=== PATIENT | female | born 1960 | race Caucasian/White ===

== ENCOUNTER → 2016-10-29 | Outpatient (CLI) | payer MEDICARE, MEDICAID ==
[~2016-10-29] MED LIST: ALDACTONE 25MG25 M1 PO; ANTIVERT 12.512.5 MG PO; CLEOCIN HCL300 MG PO; LEXAPRO 5MG5 MG PO; PEN-VEE K500 MG PO; PHENTERMINE15 MG PO; ROBAXIN 50500 MG/TAB PO; SYNTHROID0.125 MG/T PO; TENORMIN 5050 MG/TAB PO; ULTRAM 50MG TAB50 MG PO; VOLTAREN 75 DR75 MG PO
== END ==
LOC: MC.RAD 14:37
DX: Z12.31 Encounter for screening mammogram for malignant neoplasm of breast (principal); Z80.3 Family history of malignant neoplasm of breast

== ENCOUNTER → 2017-03-05 | Outpatient (CLI) | payer MEDICARE, MEDICAID | LOC: COL.VAS 16:27 | DX: R60.0 Localized edema (principal) ==

== ENCOUNTER 2017-08-02 14:55 | Emergency (ER) | payer MEDICARE, MEDICAID ==
[~2017-08-02] VITALS: Ht 144.8 cm; Wt 98.2 kg
[2017-08-02 15:03] VITALS: TEMP 98
[2017-08-02 15:24] LABS: BASO % 0.3 % (0.0-2.0); EOS # 0.2 (0.0-0.7); EOS % 2.5 % (0-4.0); GRAN # 4.1 (1.4-6.5); GRAN % 61.2 % (42.2-75.2); HEMATOCRIT 34.4 % (37.0-47.0); HEMOGLOBIN 11.2 g/dl (12.5-16.0); LYMPH # 1.7 (1.2-3.4); LYMPH % 25.7 % (20.0-51.0); MEAN CELL VOLUME 98 fl (80.0-100.0); MEAN CORPUSCULAR HEMOGLOBIN 32 pg (27.0-31.0); MEAN CORPUSCULAR HGB CONC 33 g/dl (33.0-37.0); MEAN PLATELET VOLUME 9.1 fl (7.4-10.4); MONO # 0.7 (0.1-0.6); MONO % 9.9 % (1.7-9.3); PLATELET COUNT 287 K/mm3 (130-400); RED BLOOD COUNT 3.51 M/mm3 (4.10-5.30); REDCELL DISTRIBUTION WIDTH-CV 13.7 % (11.5-14.5)
[2017-08-02 15:27] LABS: INR 1.3 (0.8-3.0); PROTHROMBIN TIME 15.1 SECONDS (9.7-12.8)
[2017-08-02 15:35] LABS: ALANINE AMINOTRANSFERASE 389 U/L (9-52); ALBUMIN 3.6 gm/dL (3.5-5.0); ALKALINE PHOSPHATASE 143 U/L (50-136); ANION GAP 6 mmol/L (7-16); AST,SGOT 417 U/L (15-37); BILIRUBIN,TOTAL 0.7 mg/dL (0.0-1.0); BLOOD UREA NITROGEN 17 mg/dL (7-17); CALCIUM 8.5 mg/dL (8.4-10.2); CARBON DIOXIDE 29 mmol/L (22-30); CHLORIDE 103 mmol/L (98-107); CREATINE KINASE 394 U/L (30-135); GLUCOSE 92 mg/dL (74-106); LIPASE 555 U/L (23-300); POTASSIUM 3.9 mmol/L (3.4-5.0); SODIUM 137 mmol/L (137-145); TOTAL PROTEIN 6.7 gm/dL (6.4-8.2)
[2017-08-02 15:47] LABS: TROPONIN-I < 0.012 ng/mL (0.000-0.034)
[2017-08-02 18:37] VITALS: BP 109/48; PULSE 63
== END 2017-08-02 18:40 | disposition home or self-care (01) ==
LOC: COL.ER 14:55
PROVIDERS: Emergency Medicine
DX: R06.02 Shortness of breath (principal); Z96.642 Presence of left artificial hip joint; Z86.718 Personal history of other venous thrombosis and embolism; Z98.890 Other specified postprocedural states
CPT/HCPCS: J7040; J7050; Q9967

== ENCOUNTER → 2017-08-06 | Outpatient (CLI) | payer MEDICARE, MEDICAID | LOC: COL.RAD 09:38 | DX: N28.1 Cyst of kidney, acquired (principal); Z90.49 Acquired absence of other specified parts of digestive tract ==

== ENCOUNTER 2017-09-14 21:40 | Emergency (ER) | payer MEDICARE, MEDICAID ==
[~2017-09-14] VITALS: Ht 144.8 cm; Wt 100.0 kg
[2017-09-14 21:45] VITALS: BP 127/80
[2017-09-14] MEDS ORDERED: CLEOCIN HCL300 MG PO (22:53)
[2017-09-15 00:09] VITALS: PULSE 65; TEMP 98.8
== END 2017-09-14 23:22 | disposition home or self-care (01) ==
LOC: COL.ER 21:40
DX: K08.89 Other specified disorders of teeth and supporting structures (principal)

== ENCOUNTER → 2017-11-29 | Outpatient (CLI) | payer MEDICARE, MEDICAID | LOC: MC.RAD 07:58 | DX: Z12.31 Encounter for screening mammogram for malignant neoplasm of breast (principal); Z98.890 Other specified postprocedural states ==

== ENCOUNTER 2018-07-06 09:42 | Emergency (ER) | payer MEDICARE, MEDICAID ==
[~2018-07-06] VITALS: Ht 144.8 cm; Wt 100.0 kg
[~2018-07-06 09:42] MED LIST changes: +LEXAPRO 10MG10 MG PO; -LEXAPRO 5MG5 MG PO
[2018-07-06 09:44] VITALS: TEMP 97.5
[2018-07-06] MEDS ORDERED: SYNTHROID 0.10.15 MG PO (09:57)
[2018-07-06] MEDS ORDERED: ELIQUIS 2.5 PO (10:00)
[2018-07-06 10:07] LABS: BASO % 0.1 % (0.0-2.0); EOS % 0.1 % (0-4.0); GRAN % 76.6 % (42.2-75.2); HEMATOCRIT 40.3 % (37.0-47.0); HEMOGLOBIN 13.1 g/dl (12.5-16.0); LYMPH # 1.3 (1.2-3.4); LYMPH % 17.2 % (20.0-51.0); MEAN CELL VOLUME 93 fl (80.0-100.0); MEAN CORPUSCULAR HEMOGLOBIN 30 pg (27.0-31.0); MEAN CORPUSCULAR HGB CONC 33 g/dl (33.0-37.0); MEAN PLATELET VOLUME 8.8 fl (7.4-10.4); MONO # 0.4 (0.1-0.6); MONO % 5.7 % (1.7-9.3); PLATELET COUNT 351 K/mm3 (130-400); RED BLOOD COUNT 4.32 M/mm3 (4.10-5.30); REDCELL DISTRIBUTION WIDTH-CV 13.2 % (11.5-14.5)
[2018-07-06 10:22] LABS: ALBUMIN 3.9 gm/dL (3.5-5.0); BILIRUBIN,TOTAL 0.3 mg/dL (0.0-1.0); C-REACTIVE PROTEIN 0.9 mg/dL (0.0-0.9); CREATININE, serum 0.64 mg/dL (0.52-1.25); POTASSIUM 4.2 mmol/L (3.4-5.0); TOTAL PROTEIN 7.2 gm/dL (6.4-8.2)
[2018-07-06 11:58] LABS: COLLECTION METHOD CLEAN CATCH
[2018-07-06 12:04] LABS: MUCOUS Present /lpf; PH 7 (5-8); SQUAMOUS EPITHELIAL 0-2 /hpf; URINE APPEARANCE Clear; URINE BACTERIA None Seen /hpf; URINE BILIRUBIN Negative (NEGATIVE); URINE BLOOD Negative (NEGATIVE); URINE COLOR Yellow; URINE GLUCOSE Negative (NEGATIVE); URINE KETONE Negative (NEGATIVE); URINE LEUKOCYTE ESTERASE Negative (NEGATIVE); URINE NITRATE Negative (NEGATIVE); URINE PROTEIN(semi-quant) Negative (NEGATIVE); URINE RBC 0-2 /hpf; URINE UROBILINOGEN Negative (NEGATIVE)
[2018-07-06] MEDS ORDERED: ZOFRAN ODT4 MG PO (12:23)
[2018-07-06 12:38] VITALS: BP 113/80; PULSE 67
[2018-07-06] MEDS ORDERED: PHENERGAN25 MG RC (23:12)
[2018-07-06] MEDS ORDERED: PEPCID 20MG TAB20 MG PO (23:12)
== END 2018-07-06 12:38 | disposition home or self-care (01) ==
LOC: COL.ER 09:42
PROVIDERS: Nurse Practitioner
DX: R19.7 Diarrhea, unspecified (principal); R10.13 Epigastric pain; R11.2 Nausea with vomiting, unspecified; Z90.49 Acquired absence of other specified parts of digestive tract; Z98.890 Other specified postprocedural states
CPT/HCPCS: J2550; J7030

== ENCOUNTER 2018-07-06 21:04 | Emergency (ER) | payer MEDICARE, MEDICAID ==
[~2018-07-06] VITALS: Ht 144.8 cm; Wt 100.0 kg
[~2018-07-06 21:04] MED LIST changes: +ELIQUIS 2.5 PO; +SYNTHROID 0.10.15 MG PO; +ZOFRAN ODT4 MG PO
[2018-07-06 21:08] VITALS: TEMP 99.2
[2018-07-06 21:39] LABS: BASO % 0.2 % (0.0-2.0); EOS # 0.1 (0.0-0.7); EOS % 0.6 % (0-4.0); GRAN # 5.7 (1.4-6.5); GRAN % 69.9 % (42.2-75.2); HEMATOCRIT 40.6 % (37.0-47.0); HEMOGLOBIN 12.9 g/dl (12.5-16.0); LYMPH # 1.8 (1.2-3.4); LYMPH % 22.1 % (20.0-51.0); MEAN CELL VOLUME 95 fl (80.0-100.0); MEAN CORPUSCULAR HEMOGLOBIN 30 pg (27.0-31.0); MEAN CORPUSCULAR HGB CONC 32 g/dl (33.0-37.0); MEAN PLATELET VOLUME 8.9 fl (7.4-10.4); MONO # 0.6 (0.1-0.6); PLATELET COUNT 362 K/mm3 (130-400); RED BLOOD COUNT 4.27 M/mm3 (4.10-5.30); REDCELL DISTRIBUTION WIDTH-CV 13.2 % (11.5-14.5)
[2018-07-06 21:49] LABS: BILIRUBIN,TOTAL 0.4 mg/dL (0.0-1.0); CREATININE, serum 0.66 mg/dL (0.52-1.25); TOTAL PROTEIN 7.1 gm/dL (6.4-8.2)
[2018-07-06 22:01] LABS: INR 1.2 (0.8-3.0); PROTHROMBIN TIME 13.3 SECONDS (9.7-12.8)
[2018-07-06] MEDS ORDERED: PHENERGAN25 MG RC (23:12)
[2018-07-06] MEDS ORDERED: PEPCID 20MG TAB20 MG PO (23:12)
[2018-07-07 01:00] VITALS: BP 108/76; PULSE 69
== END 2018-07-07 01:01 | disposition home or self-care (01) ==
LOC: COL.ER 21:04
PROVIDERS: Emergency Medicine
DX: K52.9 Noninfective gastroenteritis and colitis, unspecified (principal); E03.9 Hypothyroidism, unspecified; F41.9 Anxiety disorder, unspecified; F32.9 Major depressive disorder, single episode, unspecified; E66.9 Obesity, unspecified; Z90.49 Acquired absence of other specified parts of digestive tract; Z98.890 Other specified postprocedural states; Z68.42 Body mass index [BMI] 45.0-49.9, adult
CPT/HCPCS: J0780; J2060; J2550; J2765; J3010; J7030

== ENCOUNTER 2018-07-08 08:52 | Emergency (ER) | payer MEDICARE, MEDICAID ==
[2018-07-08 08:52] VITALS: TEMP 98
[~2018-07-08 08:52] MED LIST changes: +PEPCID 20MG TAB20 MG PO; +PHENERGAN25 MG RC
[2018-07-08 09:17] LABS: BASO % 0.3 % (0.0-2.0); EOS % 0.1 % (0-4.0); GRAN # 6.9 (1.4-6.5); GRAN % 73.8 % (42.2-75.2); HEMATOCRIT 40.4 % (37.0-47.0); HEMOGLOBIN 12.9 g/dl (12.5-16.0); LYMPH # 1.8 (1.2-3.4); LYMPH % 19.2 % (20.0-51.0); MEAN CELL VOLUME 95 fl (80.0-100.0); MEAN CORPUSCULAR HEMOGLOBIN 30 pg (27.0-31.0); MEAN CORPUSCULAR HGB CONC 32 g/dl (33.0-37.0); MEAN PLATELET VOLUME 8.9 fl (7.4-10.4); MONO # 0.6 (0.1-0.6); MONO % 6.1 % (1.7-9.3); PLATELET COUNT 348 K/mm3 (130-400); RED BLOOD COUNT 4.27 M/mm3 (4.10-5.30); REDCELL DISTRIBUTION WIDTH-CV 13.2 % (11.5-14.5)
[2018-07-08 09:26] LABS: ALBUMIN 4.3 gm/dL (3.5-5.0); BILIRUBIN,TOTAL 0.4 mg/dL (0.0-1.0); CALCIUM 9.4 mg/dL (8.4-10.2); CREATININE, serum 0.67 mg/dL (0.52-1.25); POTASSIUM 3.6 mmol/L (3.4-5.0); TOTAL PROTEIN 7.5 gm/dL (6.4-8.2)
[2018-07-08 10:09] LABS: TSH w REFLEX 8.9 uIU/mL (0.465-4.680)
[2018-07-08 10:22] LABS: COLLECTION METHOD CLEAN CATCH
[2018-07-08 10:35] LABS: MUCOUS Present /lpf; PH 6 (5-8); SQUAMOUS EPITHELIAL 0-2 /hpf; URINE APPEARANCE Clear; URINE BACTERIA None Seen /hpf; URINE BILIRUBIN Negative (NEGATIVE); URINE BLOOD 1+ (NEGATIVE); URINE COLOR Yellow; URINE GLUCOSE Negative (NEGATIVE); URINE KETONE 1+ (NEGATIVE); URINE LEUKOCYTE ESTERASE Negative (NEGATIVE); URINE NITRATE Negative (NEGATIVE); URINE PROTEIN(semi-quant) Negative (NEGATIVE); URINE UROBILINOGEN Negative (NEGATIVE)
[2018-07-08 11:09] VITALS: BP 133/86; PULSE 61
== END 2018-07-08 11:09 | disposition home or self-care (01) ==
LOC: COL.ER 08:52
PROVIDERS: Emergency Medicine
DX: R11.2 Nausea with vomiting, unspecified (principal)
CPT/HCPCS: J1630; J2405; J2550; J7030; Q9967

== ENCOUNTER 2018-07-12 17:05 | Emergency (ER) | payer MEDICARE, MEDICAID ==
[~2018-07-12] VITALS: Ht 144.8 cm; Wt 98.6 kg
[2018-07-12 17:08] VITALS: TEMP 98.5
[2018-07-12] MEDS ORDERED: CIPRO 500MG TA500 MG PO (17:21)
[2018-07-12] MEDS ORDERED: TRANSDERM-0.5 MG/21 TD (17:22)
[2018-07-12 17:53] LABS: BASO % 0.2 % (0.0-2.0); EOS % 0.4 % (0-4.0); GRAN # 7.9 (1.4-6.5); GRAN % 74.4 % (42.2-75.2); HEMATOCRIT 43.7 % (37.0-47.0); LYMPH # 1.8 (1.2-3.4); LYMPH % 17.1 % (20.0-51.0); MEAN CELL VOLUME 94 fl (80.0-100.0); MEAN CORPUSCULAR HEMOGLOBIN 30 pg (27.0-31.0); MEAN CORPUSCULAR HGB CONC 32 g/dl (33.0-37.0); MEAN PLATELET VOLUME 9.3 fl (7.4-10.4); MONO # 0.8 (0.1-0.6); MONO % 7.5 % (1.7-9.3); PLATELET COUNT 354 K/mm3 (130-400); RED BLOOD COUNT 4.65 M/mm3 (4.10-5.30); REDCELL DISTRIBUTION WIDTH-CV 13.6 % (11.5-14.5)
[2018-07-12 18:07] LABS: COLLECTION METHOD CLEAN CATCH
[2018-07-12 18:12] LABS: ALBUMIN 4.2 gm/dL (3.5-5.0); BILIRUBIN,TOTAL 0.5 mg/dL (0.0-1.0); CALCIUM 9.1 mg/dL (8.4-10.2); CREATININE, serum 0.71 mg/dL (0.52-1.25); POTASSIUM 3.9 mmol/L (3.4-5.0); TOTAL PROTEIN 7.5 gm/dL (6.4-8.2)
[2018-07-12 18:13] LABS: MUCOUS Present /lpf; PH 8 (5-8); URINE APPEARANCE Hazy; URINE BACTERIA None Seen /hpf; URINE BILIRUBIN Negative (NEGATIVE); URINE BLOOD Negative (NEGATIVE); URINE COLOR Yellow; URINE GLUCOSE Negative (NEGATIVE); URINE KETONE 1+ (NEGATIVE); URINE LEUKOCYTE ESTERASE Negative (NEGATIVE); URINE NITRATE Negative (NEGATIVE); URINE PROTEIN(semi-quant) 2+ (NEGATIVE); URINE RBC 0-2 /hpf; URINE UROBILINOGEN Negative (NEGATIVE)
[2018-07-12] MEDS ORDERED: COMPAZINE25 MG/SUPP RC (19:20)
[2018-07-12] MEDS ORDERED: COMPAZINE 110 MG/TAB PO (19:20)
[2018-07-12 20:16] VITALS: BP 113/62; PULSE 65
== END 2018-07-12 20:18 | disposition home or self-care (01) ==
LOC: COL.ER 17:05
PROVIDERS: Emergency Medicine
DX: R11.10 Vomiting, unspecified (principal); E03.9 Hypothyroidism, unspecified; E66.9 Obesity, unspecified; Z90.49 Acquired absence of other specified parts of digestive tract; Z68.42 Body mass index [BMI] 45.0-49.9, adult
CPT/HCPCS: A4216; J0696; J0780; J1630; J7030

== ENCOUNTER 2018-08-06 13:00 | Outpatient (RCR) | payer MEDICARE, MEDICAID ==
[~2018-08-06 13:00] MED LIST changes: +CEFTIN500 MG PO; +CIPRO 500MG TA500 MG PO; +COMPAZINE 110 MG/TAB PO; +COMPAZINE25 MG/SUPP RC; +TRANSDERM-0.5 MG/21 TD
== END 2018-08-31 | disposition home or self-care (01) ==
LOC: WSPT
DX: Z47.1 Aftercare following joint replacement surgery (principal); Z96.641 Presence of right artificial hip joint; Z87.798 Personal history of other (corrected) congenital malformations; Z79.01 Long term (current) use of anticoagulants; Z79.891 Long term (current) use of opiate analgesic; Z79.899 Other long term (current) drug therapy
CPT/HCPCS: G8978-GP; G8979-GP

== ENCOUNTER → 2018-12-18 | Outpatient (CLI) | payer MEDICARE, MEDICAID | LOC: MC.RAD 12:30 | DX: N63.10 Unspecified lump in the right breast, unspecified quadrant (principal); Z98.890 Other specified postprocedural states | CPT/HCPCS: G0279 ==

== ENCOUNTER → 2020-01-05 | Outpatient (CLI) | payer MEDICARE, MEDICAID | LOC: MC.RAD 16:34 | DX: Z12.31 Encounter for screening mammogram for malignant neoplasm of breast (principal); Z98.82 Breast implant status ==

== ENCOUNTER 2020-02-19 09:42 | Day surgery (SDC) | payer MEDICARE, MEDICAID ==
[~2020-02-19] VITALS: Ht 144.8 cm; Wt 98.4 kg
[2020-02-19] VITALS (10 sets, daily range): BP systolic 80–126; BP diastolic 56–71; PULSE 50–78
[2020-02-19] MEDS ORDERED: LEXAPRO 10MG10 MG PO (09:57)
[2020-02-19] MEDS ORDERED: SYNTHROID 0.10.15 MG PO (09:57)
[2020-02-19 10:21] LABS: HEMATOCRIT 45.3 % (37.0-47.0); HEMOGLOBIN 14.7 g/dl (12.5-16.0); MEAN CELL VOLUME 94 fl (80.0-100.0); MEAN CORPUSCULAR HEMOGLOBIN 30 pg (27.0-31.0); MEAN CORPUSCULAR HGB CONC 33 g/dl (33.0-37.0); MEAN PLATELET VOLUME 8.9 fl (7.4-10.4); PLATELET COUNT 305 K/mm3 (130-400); RED BLOOD COUNT 4.83 M/mm3 (4.10-5.30); REDCELL DISTRIBUTION WIDTH-CV 13.2 % (11.5-14.5)
[2020-02-19 10:28] LABS: PROTHROMBIN TIME 10.8 SECONDS (9.7-12.8)
[2020-02-19 10:30] LABS: CALCIUM 9.2 mg/dL (8.4-10.2); CREATININE, serum 0.57 (0.52-1.25); POTASSIUM 4.4 mmol/L (3.4-5.0)
--- NOTE | 2020-02-19 10:36 | NUR ---
Yuki with Logistics/Shipper in room to speak with pt due to positive Suicide Risk Assessment. Pt has seen PCP Britton, who is aware of suicidal thoughts. She has considered following with [facility], but has not reached out to the office yet.
--- NOTE | 2020-02-19 11:48 | NUR ---
SEE MERGE DOCUMENTATION FOR MEDICATION ADMINISTRATION TIMES AND INTRA/POST PROCEDURE SEDATION ASSESSMENTS. RIGHT HAND BARBEAU TEST POSITIVE.
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
--- NOTE | 2020-02-19 13:05 | NUR ---
NS drip restarted at 100ml/hr due to hypotension. Pt is resting comfortably in bed, free of complaints except for VOGEL which she states is due to not having caffeine today. Pt is A&O.
--- NOTE | 2020-02-19 13:11 | NUR ---
layout worker contacted Sameera with Dr Jarquin's office and advised of patient's plan for mental health screening in the ED this date.
--- NOTE | 2020-02-19 14:40 | NUR ---
Air slowly removed from TR band to rt arm without issue. TR band now removed, site covered with 2x2 and gauze, coban wrap. Wrist remains soft to palpation.
--- NOTE | 2020-02-19 15:29 | NUR ---
Pt DC'd from [facility], taken to rm 9 in ED for psych evaluation due to positive Suicide Risk Assessment. Bedside report given to ALEXA Rasmussen, and Yuki with SS following, and will contact [facility] when pt is cleared for screen.
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
== END 2020-02-19 15:29 | disposition home or self-care (01) ==
LOC: COL.CAR 09:42
PROVIDERS: Internal Medicine Interventional Cardiology
DX: R07.89 Other chest pain (principal); I10 Essential (primary) hypertension; R94.39 Abnormal result of other cardiovascular function study; Z90.49 Acquired absence of other specified parts of digestive tract; Z96.653 Presence of artificial knee joint, bilateral; Z88.5 Allergy status to narcotic agent; Z88.6 Allergy status to analgesic agent; Z88.8 Allergy status to other drugs, medicaments and biological substances
CPT/HCPCS: J1644; J2250; J3010; Q9967

== ENCOUNTER 2020-02-19 15:30 | Emergency (ER) | payer MEDICARE, MEDICAID ==
[~2020-02-19] VITALS: Ht 144.8 cm; Wt 97.3 kg
[2020-02-19 15:38] VITALS: BP 115/75; TEMP 97.7
[2020-02-19 15:58] LABS: COLLECTION METHOD CLEAN CATCH
[2020-02-19 16:07] LABS: ACETAMINOPHEN < 10 ug/mL (10-30); ALCOHOL(ethanol),MEDICAL < 10 mg/dL; SALICYLATE < 1.0 mg/dL
--- NOTE | 2020-02-19 16:09 | NUR ---
Body And Fender Worker responded to consult in Express Unit for patient earlier in the day. Please see note for account [id number].
[2020-02-19 16:12] LABS: PH 6 (5-8); URINE APPEARANCE Clear; URINE BACTERIA None Seen /hpf; URINE BILIRUBIN Negative (NEGATIVE); URINE BLOOD Negative (NEGATIVE); URINE COLOR Yellow; URINE GLUCOSE Negative (NEGATIVE); URINE KETONE Negative (NEGATIVE); URINE LEUKOCYTE ESTERASE Negative (NEGATIVE); URINE NITRATE Negative (NEGATIVE); URINE PROTEIN(semi-quant) Negative (NEGATIVE); URINE UROBILINOGEN Negative (NEGATIVE)
--- NOTE | 2020-02-19 16:38 | NUR ---
French Comber spoke with DHEERAJ Sweeney French Comber who advised patient refused to speak with her at this time. SW faxed information to [facility] and they will screen once medically stable. Per ED Physician, patient is medically stable. Labs are still pending. ALLEN collaborated with RNSarika and left fax information on patient's chart.
[2020-02-19 16:41] LABS: TRICYCLIC ANTIDEPRESS URINE NEGATIVE
[2020-02-19 18:20] VITALS: PULSE 66
== END 2020-02-19 18:17 | disposition home or self-care (01) ==
LOC: COL.ER 15:30
PROVIDERS: Family Medicine
DX: F32.9 Major depressive disorder, single episode, unspecified (principal); R45.851 Suicidal ideations; R51 Headache; F41.9 Anxiety disorder, unspecified